=== PATIENT | female | born 2005 | race Caucasian/White ===

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

== ENCOUNTER 2023-06-14 16:28 | Emergency (ER) | payer SELFPAY ==
[2023-06-14 16:28] VITALS: BP 127/81; PULSE 116; RESP 17; TEMP 36.8; O2SAT 100; BMI 23.1
--- NOTE | 2023-06-14 16:42 | ED.VIS.FEGU ---
HPI HPI - Female History of Present Illness Chief Complaint: Vag Bld, Preg Informant: patient and parent Narrative Narrative: 10-week gestation by ultrasound presents vaginal bleeding starting yesterday evening states mild dark blood. No clots no bright red blood. Intermittent cramping pelvis. No dysuria. Denies alcohol, tobacco or illicit drug use. She did have recent sexual intercourse. She is followed by [facility]. Last seen was 2 weeks ago. Prior similar symptoms: No PFSH PFSH Medical History no medical history Home Medications clindamycin HCl 300 mg capsule (Cleocin HCl) 300 mg PO 4X/DAY 10 days #40 CAPSULES 07/17/22 [Rx Last Taken Unknown] hydrocodone-acetaminophen 5-325mg 5mg-325mg 1 tab PO Q6H PRN pain 3 days #12 tabs 07/17/22 [Rx Last Taken Unknown] Allergy/AdvReac Type Severity Reaction Status Date / Time No Known Allergies Allergy Verified 06/14/23 16:30 Social History Smoking Status: Never smoker ROS ROS ED Constitutional Constitutional ED: Denies chills, fever(s) or sweats Eyes Eyes: Denies change in vision ENT ENT ED: Denies dysphagia or sore throat Cardiovascular Cardiovascular: Denies chest pain, leg edema, palpitations or racing heartbeat Respiratory/Chest Respiratory/Chest: Denies cough, dyspnea or dyspnea on exertion Gastrointestinal Gastrointestinal: Denies abdominal pain, diarrhea, nausea or vomiting Genitourinary Genitourinary ED: Reports other Details: Vaginal bleeding ; Denies dysuria, hematuria or urinary frequency Musculoskeletal Musculoskeletal: Denies back pain, extremity pain or neck pain Integumentary Denies rash or wounds Neurologic Neurologic: Denies headache(s), paresthesias or weakness EXAM Physical Exam Const Vital Signs: 06/14/23 16:28 06/14/23 18:15 06/14/23 18:16 Temperature 98.2 F 98.2 F 98.2 F Temperature Source Temporal Temporal Pulse Rate 116 H 74 74 Respiratory Rate 17 16 16 Blood Pressure 127/81 H 104/62 104/62 Blood Pressure Mean 96 76 76 Pulse Ox 100 99 99 Oxygen Delivery Method Room Air Room Air Positive well nourished and well developed General Appearance ED: well developed and NAD HEENT Reports moist mucous membranes normocephalic and atraumatic Eyes PERRL, EOMs intact bilaterally and conjunctivae normal General Eye ED: Yes normal appearance of both eyes Neck no lymphadenopathy and supple General: Negative for tenderness Chest Wall Chest: Negative for tenderness Resp normal respiratory effort and normal air movement Effort and Inspection: symmetric chest movement; Negative for respiratory distress Cardio regular rate, regular rhythm and no murmurs Peripheral Pulses: pulses 2+ throughout GI normal to inspection, nondistended, normoactive bowel sounds and non-tender Palpation: Negative for guarding or rebound tenderness present Back/Spine no CVA tenderness and no thoracic nor lumbar tenderness Extremity normal to inspection General Extremety ED: Negative for edema or tenderness General Extremity: Negative for edema Neuro oriented x3 and no sensory deficits noted Sensorium / Orientation: awake and alert Skin no rashes or lesions noted and no wounds MDM MDM MDM Narrative Medical decision making narrative: Interventions / MDM: Differential diagnosis: Threatened miscarriage Diagnosis considered but do not suspect: N/A My EKG interpretation: N/A Imaging independently reviewed and interpreted by myself: N/A External documents reviewed: N/A Test considered but not ordered:N/A ED course: Bedside ultrasound performed, heart tones 154 intrauterine. Will check ABO Rh, baseline beta-hCG, UA. Blood type a positive. hCG 96317, urine 25 leukocytes no other bacteria. Urine culture sent. No bleeding in the department. Discussed pelvic rest. Monitor for increasing bleeding. Discussed threatened miscarriage with patient and mother. Follow-up with her OB. All questions were answered. Re-evaluation: stable Disposition discussed with patient/family/significant other: Patient and mother Case discussed with consulting clinician: N/A This note was generated with [employer] dictation software. It may contain incorrect words, spelling, and punctuation that were not noted in checking the note before signing. Lab Data Attestation: I reviewed the patient's lab results. Labs: Laboratory Results - last 24 hr 06/14/23 17:00 HCG, Quant [id number] H Urine Color Yellow Urine Clarity Cloudy Urine pH 6.5 Ur Specific Merkel 1.020 Urine Protein 15 H Urine Glucose (UA) Normal Urine Ketones 50 H Urine Occult Blood 10 H Urine Nitrite Negative Urine Bilirubin Negative Urine Urobilinogen 1 H Ur Leukocyte Esterase 25 H Urine RBC 0 SEEN Urine WBC 0-5 SEEN Ur Squamous Epith Cells 0-5 SEEN Amorphous Sediment 2+ Urine Bacteria 0 SEEN Urine Mucus 0 SEEN Blood Type A POSITIVE Discharge Plan Triage Chief Complaint: Vag Bld, Preg ED Provider: Humphrey Stern Dx/Rx/DC Orders Clinical Impression: Threatened miscarriage, First trimester Instructions: 1st Trimester, Miscarriage Threatened Prescriptions: No Action hydrocodone-acetaminophen 5-325 mg tablet 1 tab PO Q6H PRN (Reason: pain) 3 Days Qty: 12 0RF clindamycin HCl [Cleocin HCl] 300 mg capsule 300 mg PO 4X/DAY 10 Days Qty: 40 0RF Primary Care Provider: Care Physician,No Primary Referrals: Uyen Becerra CNM [Med Staff - Adv Practice Prof] - Keep Mehrdad appointment Care Physician,No Primary [Primary Care Provider] - Activity Restrictions/Additional Instructions: Blood type a, Rh+. Hormone level [id number]. Pelvic rest as discussed. Disposition Disposition: Home, Self Care Discharge Date/Time: 06/14/23 18:21
[2023-06-14 17:12] LABS: Bacteria 0 SEEN /hpf (None Seen); Mucous, Urine 0 SEEN /hpf (<or=2+); Red Blood Cells-Urine 0 SEEN /hpf (0-5)
[2023-06-14 17:15] LABS: Color, Urine Yellow (Yellow); Glucose, Dipstick Normal (Normal); Ketone-Dipstick 50 mg/dl (Negative); Leukocyte Esterase-Dipstick 25 /ul (Negative); Nitrite-Dipstick Negative (Negative); Occult Blood-Urine 10 /ul (Negative); Protein-Dipstick 15 mg/dl (Negative); Urine Bilirubin Dipstick Negative (Negative); Urine Clarity Cloudy (Clear); Urine Urobilinogen 1 mg/dl (Normal); Urine pH 6.5 (5.0 - 8.0)
[2023-06-14 17:23] LABS: Amorphous Sediment 2+; Squamous Epithelial Cells - UA 0-5 SEEN /hpf (5-10); White Blood Cells 0-5 SEEN /hpf (0-5)
[2023-06-14 17:58] LABS: hCG Titer Quant., Serum 66262 mIU/mL (1-3)
[2023-06-14 18:15] VITALS: BP 104/62; PULSE 74; RESP 16; TEMP 36.8; O2SAT 99
[2023-06-14 18:16] VITALS: BP 104/62; PULSE 74; RESP 16; TEMP 36.8; O2SAT 99
== END 2023-06-14 18:21 | disposition home or self-care (01) ==
PROVIDERS: Emergency Provider Emergency Medicine; Visit Provider Emergency Medicine
DX: O20.0 Threatened abortion (principal); Z3A.10 10 weeks gestation of pregnancy
CPT/HCPCS: 81001; 84702; 86900; 86901; 87086; 99282

== ENCOUNTER 2023-06-29 15:40 | Emergency (ER) | payer SELFPAY ==
[2023-06-29 15:43] VITALS: BP 108/95; PULSE 150; RESP 18; TEMP 36.3; O2SAT 100; BMI 20.6
--- NOTE | 2023-06-29 17:20 | EX.ED.DYSGE1 ---
HPI <Dr. Michael Hennessy DO - Last Filed: 06/29/23 22:08> History of Present Illness Chief Complaint: General Illness <BLANCHE Goff - Last Filed: 06/29/23 20:54> Narrative Narrative: Patient presenting today due to nausea, vomiting, and lower pelvic/abdominal pain. She reports that she is currently 12 weeks . She is G1, P0. She follows with Dr. Becerra and has had ultrasound to show intrauterine . She is struggled with nausea and vomiting throughout her and takes Reglan with minimal relief. She thought she noticed a small amount of blood in her vomit this evening. She denies any fevers, chills, diarrhea, and urinary symptoms. PFSH <Dr. Michael Hennessy DO - Last Filed: 06/29/23 22:08> PFSH Home Medications clindamycin HCl 300 mg capsule (Cleocin HCl) 300 mg PO 4X/DAY 10 days #40 CAPSULES 07/17/22 [Rx Last Taken Unknown] hydrocodone-acetaminophen 5-325mg 5mg-325mg 1 tab PO Q6H PRN pain 3 days #12 tabs 07/17/22 [Rx Last Taken Unknown] ondansetron 4 mg disintegrating tablet 4 mg PO Q8H PRN PRN Nausea #10 tabs 06/29/23 [Rx Last Taken Unknown] Allergy/AdvReac Type Severity Reaction Status Date / Time No Known Allergies Allergy Verified 06/29/23 15:43 Social History Smoking Status: Never smoker ROS <BLANCHE Goff - Last Filed: 06/29/23 20:54> ROS ED Constitutional Constitutional ED: Denies chills or fever(s) Respiratory/Chest Respiratory/Chest: Denies dyspnea Gastrointestinal Gastrointestinal: Reports abdominal pain, nausea and vomiting; Denies constipation or diarrhea Genitourinary Genitourinary ED: Denies dysuria, hematuria or urinary urgency Musculoskeletal Musculoskeletal: Denies arthralgias or myalgias Integumentary Denies rash Neurologic Neurologic: Denies weakness EXAM <DO Adriel Eli Last Filed: 06/29/23 22:08> Physical Exam Const Vital Signs: 06/29/23 15:43 06/29/23 17:29 06/29/23 18:00 Temperature 97.3 F L Temperature Source Temporal Pulse Rate 150 H 64 Respiratory Rate 18 18 Respiratory Effort Normal Non-Labored Respiratory Pattern Normal Blood Pressure 108/95 H 112/76 Blood Pressure Mean 99 88 Pulse Ox 100 98 Oxygen Delivery Method Room Air Room Air 06/29/23 20:00 06/29/23 21:03 Temperature 98.1 F Temperature Source Pulse Rate 80 80 Respiratory Rate 16 16 Respiratory Effort Respiratory Pattern Blood Pressure 99/67 Blood Pressure Mean 77 Pulse Ox 98 99 Oxygen Delivery Method Room Air <BLANCHE Goff - Last Filed: 06/29/23 20:54> Physical Exam Const Vital Signs: 06/29/23 15:43 06/29/23 17:29 06/29/23 18:00 Temperature 97.3 F L Temperature Source Temporal Pulse Rate 150 H 64 Respiratory Rate 18 18 Respiratory Effort Normal Non-Labored Respiratory Pattern Normal Blood Pressure 108/95 H 112/76 Blood Pressure Mean 99 88 Pulse Ox 100 98 Oxygen Delivery Method Room Air Room Air 06/29/23 20:00 06/29/23 21:03 Temperature 98.1 F Temperature Source Pulse Rate 80 80 Respiratory Rate 16 16 Respiratory Effort Respiratory Pattern Blood Pressure 99/67 Blood Pressure Mean 77 Pulse Ox 98 99 Oxygen Delivery Method Room Air Positive well nourished, well developed and no apparent distress General Appearance ED: well developed HEENT Reports normocephalic, head/scalp atraumatic and dry mucous membranes Mouth ED: Yes dry mucous membranes Mouth: dry mucous membranes Eyes PERRL and EOMs intact bilaterally Neck full ROM and supple Chest Wall inspection of chest normal Resp normal respiratory effort and clear to auscultation bilaterally Cardio regular rate and regular rhythm GI soft to palpation, non-distended and no masses GI Narrative: Minimal tenderness in the left lower quadrant/left pelvic region. No rigidity, guarding, or peritoneal signs. Back/Spine normal ROM and normal to inspection Extremity normal to inspection and full ROM Neuro oriented x3, CN's II-XII intact bilaterally, moves all extremities, no focal motor deficits and no sensory deficits noted Sensorium / Orientation: awake and alert Psych mental status grossly normal and thought process normal Skin no rashes or lesions noted and no wounds MDM <Dr. Michael Hennessy DO - Last Filed: 06/29/23 22:08> MDM MDM Narrative Medical decision making narrative: Patient presenting due to lower pelvic pain, nausea, and vomiting. Her pain started 2 days ago, she has struggled with nausea and vomiting throughout her . She is well-appearing and in no acute distress. Initially she is tachycardic but her heart rate did improve. Clinically she does appear dehydrated. She will be given IV fluids and Zofran. Labs will be obtained to rule out leukocytosis, anemia, electrode abnormality, KATHI, UTI, pancreatitis, and hepatobiliary etiology. CBC and CMP are unremarkable, she does not have any anemia. hCG quant is over 33,000. UA shows urinary ketones but negative for UTI. Given her pelvic pain, transvaginal ultrasound was obtained, this shows a single live intrauterine with a heart rate of 166 bpm. On reexamination she reports improvement of her symptoms. She is tolerating p.o. fluids. She will be given a prescription for Zofran. She follows up with her OB on Friday. Return instructions were given and patient discharged home in stable condition. ED attending note: I evaluated the patient in conjunction with the DEO. I agree with his/her statements and above findings. I have personally performed a face to face assessment of the patient and have reviewed the DEO Note. I performed a substantive portion of the visit including all aspects of the following. I personally saw the patient performed chart review, physical exam, reviewed labs, imaging (if obtained), and formulated a treatment and management plan. This note was generated with [employer] dictation software. It may contain incorrect words, spelling, and punctuation that were not noted in review of the chart prior to signing. Lab Data Labs: Laboratory Results - last 24 hr 06/29/23 06/29/23 06/29/23 17:40 19:30 20:20 WBC 7.9 RBC 4.38 Hgb 13.3 Hct 37.7 MCV 86.1 MCH 30.4 MCHC 35.3 RDW Std Deviation 38.8 RDW Coeff of Krystyna 12.3 Plt Count 204 MPV 10.0 Immature Gran % (Auto) 0.300 Neut % (Auto) 76.2 H Lymph % (Auto) 13.0 L [place] % (Auto) 10.3 H Eos % (Auto) 0.1 Baso % (Auto) 0.1 Absolute Neuts (auto) 6.0 Absolute Lymphs (auto) 1.02 Nucleated RBC % 0 Sodium 137 Potassium 3.7 Chloride 103 Carbon Dioxide 24.0 Anion Gap 10 BUN 9 Creatinine 0.54 L Estim Creat Clear Calc 144.47 Est GFR (MDRD) Af Amer 188 Est GFR (MDRD) Non-Af 155 BUN/Creatinine Ratio 16.8 Glucose 82 Calcium 9.4 Total Bilirubin 0.80 AST 7 L ALT 19 Alkaline Phosphatase 48 Total Protein 7.7 Albumin 4.1 Globulin 3.6 Albumin/Globulin Ratio 1.1 Lipase 69 HCG, Quant 42076 H Urine Color Yellow Urine Clarity Clear Urine pH 6.0 Ur Specific [place] 1.025 Urine Protein 30 H Urine Glucose (UA) Normal Urine Ketones 150 A* Urine Occult Blood Negative Urine Nitrite Negative Urine Bilirubin Negative Urine Urobilinogen 1 H Ur Leukocyte Esterase 25 H Urine RBC 0-5 SEEN Urine WBC 0-5 SEEN Ur Squamous Epith Cells 0 SEEN Urine Bacteria 0 SEEN Urine Mucus 0 SEEN Blood Type A POSITIVE Antibody Screen NEGATIVE Radiography Diagnostic Testing: Clinical Impression(s) from Imaging Studies Obstetrics Ultrasound 06/29/23 17:31 IMPRESSION: There is a single live intrauterine with a heart rate of 166 bpm. Electronically Signed: Martin Edwards MD at 19:58 EDT , <BLANCHE Goff - Last Filed: 06/29/23 20:54> [facility] Narrative Medical decision making narrative: Patient presenting due to lower pelvic pain, nausea, and vomiting. Her pain started 2 days ago, she has struggled with nausea and vomiting throughout her . She is well-appearing and in no acute distress. Initially she is tachycardic but her heart rate did improve. Clinically she does appear dehydrated. She will be given IV fluids and Zofran. Labs will be obtained to rule out leukocytosis, anemia, electrode abnormality, KATHI, UTI, pancreatitis, and hepatobiliary etiology. CBC and CMP are unremarkable, she does not have any anemia. hCG quant is over 33,000. UA shows urinary ketones but negative for UTI. Given her pelvic pain, transvaginal ultrasound was obtained, this shows a single live intrauterine with a heart rate of 166 bpm. On reexamination she reports improvement of her symptoms. She is tolerating p.o. fluids. She will be given a prescription for Zofran. She follows up with her OB on Friday. Return instructions were given and patient discharged home in stable condition. Lab Data Attestation: I reviewed the patient's lab results. Labs: Laboratory Results - last 24 hr 06/29/23 06/29/23 06/29/23 17:40 19:30 20:20 WBC 7.9 RBC 4.38 Hgb 13.3 Hct 37.7 MCV 86.1 MCH 30.4 MCHC 35.3 RDW Std Deviation 38.8 RDW Coeff of Krystyna 12.3 Plt Count 204 MPV 10.0 Immature Gran % (Auto) 0.300 Neut % (Auto) 76.2 H Lymph % (Auto) 13.0 L [place] % (Auto) 10.3 H Eos % (Auto) 0.1 Baso % (Auto) 0.1 Absolute Neuts (auto) 6.0 Absolute Lymphs (auto) 1.02 Nucleated RBC % 0 Sodium 137 Potassium 3.7 Chloride 103 Carbon Dioxide 24.0 Anion Gap 10 BUN 9 Creatinine 0.54 L Estim Creat Clear Calc 144.47 Est GFR (MDRD) Af Amer 188 Est GFR (MDRD) Non-Af 155 BUN/Creatinine Ratio 16.8 Glucose 82 Calcium 9.4 Total Bilirubin 0.80 AST 7 L ALT 19 Alkaline Phosphatase 48 Total Protein 7.7 Albumin 4.1 Globulin 3.6 Albumin/Globulin Ratio 1.1 Lipase 69 HCG, Quant 99405 H Urine Color Yellow Urine Clarity Clear Urine pH 6.0 Ur Specific [place] 1.025 Urine Protein 30 H Urine Glucose (UA) Normal Urine Ketones 150 A* Urine Occult Blood Negative Urine Nitrite Negative Urine Bilirubin Negative Urine Urobilinogen 1 H Ur Leukocyte Esterase 25 H Urine RBC 0-5 SEEN Urine WBC 0-5 SEEN Ur Squamous Epith Cells 0 SEEN Urine Bacteria 0 SEEN Urine Mucus 0 SEEN Blood Type A POSITIVE Antibody Screen NEGATIVE Radiography Diagnostic Testing: Clinical Impression(s) from Imaging Studies Obstetrics Ultrasound 06/29/23 17:31 IMPRESSION: There is a single live intrauterine with a heart rate of 166 bpm. Electronically Signed: Martin Edwards MD at 19:58 EDT , Discharge Plan Triage Chief Complaint: General Illness ED Midlevel Provider: Nya Giraldo ED Provider: Michael Hennessy Dx/Rx/DC Orders Clinical Impression: , Nausea & vomiting, Abdominal pain Instructions: ED Vomiting (Adult) Prescriptions: New ondansetron 4 mg tablet,disintegrating 4 mg PO Q8H PRN PRN (Reason: Nausea) Qty: 10 0RF No Action hydrocodone-acetaminophen 5-325 mg tablet 1 tab PO Q6H PRN (Reason: pain) 3 Days Qty: 12 0RF clindamycin HCl [Cleocin HCl] 300 mg capsule 300 mg PO 4X/DAY 10 Days Qty: 40 0RF Primary Care Provider: Care Physician,No Primary Referrals: Care Physician,No Primary [Primary Care Provider] - Activity Restrictions/Additional Instructions: Follow-up with OB and return for any worsening of your symptoms. Stay well-hydrated. Disposition Disposition: Home, Self Care Discharge Date/Time: 06/29/23 21:04
--- NOTE | 2023-06-29 17:31 | US_ITS ---
STUDY: FIRST TRIMESTER OBSTETRICAL ULTRASOUND REASON FOR EXAM: Female, 17 years old. pelvic pain-more prominent on left and general weakness TECHNIQUE: Transvaginal US was obtained to better visualized the ovaries. TECHNICAL QUALITY: Adequate. PRIOR ULTRASOUND: None. FINDINGS: There is visualization of a single gestational sac in a normal intrauterine position. The mean sac diameter (MSD) measures 39 mm, indicating an estimated gestational age (EGA) of 9 weeks, 2 days. The gestational sac shape is within normal limits. There is no demonstrated yolk sac. The placenta is posterior. There is visualization of a live embryo. The crown-rump length (CRL) measures 65 mm, indicating an estimated gestational age (EGA) of 12 weeks, 4 days. There is demonstrated cardiac activity with a heart rate of 166 bpm. The estimated gestation age (EGA) by LMP is 12 weeks, 4 days. The estimated date of delivery (DORIS) by LMP is 11.20.24. The estimated gestation age (EGA) by US is 11 weeks, 1 days. The estimated date of delivery (DORIS) by US is 11.30.24 . The uterus measures 10.8 cm. There is no demonstrated uterine fibroid. The cervix is closed. The right ovary measures 2.9 cm. There is no right ovarian cyst. There is no visualized right adnexal mass or complex lesion. The left ovary measures 3.4 cm. There is no left ovarian cyst. There is no visualized left adnexal mass or complex lesion. There is no fluid in the cul de sac. US/Transvaginal w/Preg US IMPRESSION: There is a single live intrauterine with a heart rate of 166 bpm. Electronically Signed: Martin Edwards MD at 19:58 EDT ,
[2023-06-29 17:50] LABS: Absolute Lymphocyte Count 1.02 X10^3/uL (0.83-4.51); Basophil# 0.01 X10^3/uL; Basophil% 0.1 % (0-1); Eosinophil# 0.01 X10^3/uL; Eosinophils% 0.1 % (0-5); Hematocrit 37.7 % (37-47); Hemoglobin 13.3 g/dL (12.0-15.0); Lymphocyte # 1.02 X10^3/ul (0.83-4.51); Mean Corp Hgb Conc 35.3 g/dL (32-36); Mean Corpuscular Hgb 30.4 pg (27.0-32.0); Mean Corpuscular Volume 86.1 fL (81-99); Monocyte# 0.81 X10^3/uL; Monocyte% 10.3 % (0-10); NRBC Flagged by Analyzer 0 % (0-5); Neutrophil % 76.2 % (47-70); Platelet Count 204 K/mm3 (150-450); RBC Distribution Width CV 12.3 % (11.6-14.6); RBC Distribution Width SD 38.8 fl (35.1-43.9); Red Blood Count 4.38 M/mm3 (4.2-5.4); White Blood Count 7.9 K/mm3 (4.4-11.0)
[2023-06-29 18:00] VITALS: BP 112/76; PULSE 64; RESP 18; O2SAT 98
[2023-06-29 18:06] LABS: ALB/GLOB Ratio 1.1 RATIO (0.9-2.4); AST(SGOT) 7 U/L (15-37); Alanine Aminotransfer ALT/SGPT 19 U/L (13-56); Albumin, Serum 4.1 g/dL (3.2-5.0); Alkaline Phosphatase 48 U/L (45-117); Anion Gap 10 (5-15); BUN 9 mg/dL (7-18); BUN/Creat Ratio 16.8 RATIO (10-20); Calcium,Total 9.4 mg/dL (8.5-10.1); Chloride 103 mmol/L (98-107); Creatinine, Serum 0.54 mg/dL (0.55-1.02); EST Glomerular Filtration Rate 155 mL/min (>60); Est Glom Filt Rate - Afr Amer 188 mL/min (>60); Estimated Creatinine Clearance 144.47 ml/min; Globulin 3.6 g/dL (2.2-4.2); Glucose 82 mg/dL (74-106); Lipase 69 U/L (13-75); Potassium 3.7 mmol/L (3.5-5.1); Protein, Total 7.7 g/dL (6.4-8.2); Sodium Level 137 mmol/L (136-145)
[2023-06-29] MEDS: Ondansetron 4 MG/2 ML Vial IV (19:28)
[2023-06-29] MEDS: 0.9% Normal Saline (1000mL) 1,000 ML 999 ML IV (19:28)
[2023-06-29 20:00] VITALS: PULSE 80; RESP 16; O2SAT 98
[2023-06-29 20:26] LABS: Bacteria 0 SEEN /hpf (None Seen); Mucous, Urine 0 SEEN /hpf (<or=2+); Squamous Epithelial Cells - UA 0 SEEN /hpf (5-10)
[2023-06-29 20:27] LABS: Color, Urine Yellow (Yellow); Glucose, Dipstick Normal (Normal); Leukocyte Esterase-Dipstick 25 /ul (Negative); Nitrite-Dipstick Negative (Negative); Occult Blood-Urine Negative /ul (Negative); Protein-Dipstick 30 mg/dl (Negative); Specific Gravity, Urine 1.025 (1.002-1.030); Urine Bilirubin Dipstick Negative (Negative); Urine Clarity Clear (Clear); Urine Urobilinogen 1 mg/dl (Normal)
[2023-06-29 20:34] LABS: Ketone-Dipstick 150 mg/dl (Negative)
[2023-06-29 20:35] LABS: Red Blood Cells-Urine 0-5 SEEN /hpf (0-5); White Blood Cells 0-5 SEEN /hpf (0-5)
[2023-06-29 20:46] LABS: hCG Titer Quant., Serum 33563 mIU/mL (1-3)
[2023-06-29 21:03] VITALS: BP 99/67; PULSE 80; RESP 16; TEMP 36.7; O2SAT 99
== END 2023-06-29 21:04 | disposition home or self-care (01) ==
PROVIDERS: Physician Assistant; Emergency Provider Emergency Medicine; Visit Provider Emergency Medicine
DX: O21.9 Vomiting of pregnancy, unspecified (principal); Z3A.12 12 weeks gestation of pregnancy
CPT/HCPCS: 76817; 80053; 81001; 83690; 84702; 85025; 86850; 86900; 86901; 96361; 96374; 99283; J7030; A4216; J2405

== ENCOUNTER 2023-10-03 23:32 | Outpatient (CLI) | payer SELFPAY ==
[2023-10-03 23:48] VITALS: PULSE 94; O2SAT 99
[2023-10-03 23:49] VITALS: BP 109/67; PULSE 97; RESP 16; TEMP 37.2; O2SAT 98
[2023-10-03 23:53] VITALS: BMI 25.9
[2023-10-04 00:15] LABS: Mucous, Urine 0 SEEN /hpf (<or=2+)
[2023-10-04] MEDS: Lactated Ringers 1,000 ML 999 ML IV (00:15)
[2023-10-04 00:42] LABS: Absolute Lymphocyte Count 2.22 X10^3/uL (0.83-4.51); Absolute Neutrophil Count 6.4 X10^3/uL (2.0-7.7); Basophil# 0.02 X10^3/uL; Basophil% 0.2 % (0-1); Eosinophil# 0.09 X10^3/uL; Eosinophils% 0.9 % (0-5); Hematocrit 29.5 % (37-47); Hemoglobin 9.8 g/dL (12.0-15.0); Lymphocyte # 2.22 X10^3/ul (0.83-4.51); Lymphocyte % 22.7 % (19-41); Mean Corp Hgb Conc 33.2 g/dL (32-36); Mean Corpuscular Hgb 30.3 pg (27.0-32.0); Mean Corpuscular Volume 91.3 fL (81-99); Mean Platelet Vol. 10.4 fl (6.2-12.0); Monocyte# 0.96 X10^3/uL; Monocyte% 9.8 % (0-10); NRBC Flagged by Analyzer 0 % (0-5); Neutrophil % 65.5 % (47-70); Platelet Count 241 K/mm3 (150-450); RBC Distribution Width CV 11.7 % (11.6-14.6); Red Blood Count 3.23 M/mm3 (4.2-5.4); White Blood Count 9.8 K/mm3 (4.4-11.0)
[2023-10-04 00:59] LABS: ALB/GLOB Ratio 0.8 RATIO (0.9-2.4); AST(SGOT) 6 U/L (15-37); Alanine Aminotransfer ALT/SGPT 12 U/L (13-56); Alkaline Phosphatase 55 U/L (45-117); Anion Gap 7 (5-15); BUN 5 mg/dL (7-18); BUN/Creat Ratio 10.8 RATIO (10-20); Calcium,Total 8.7 mg/dL (8.5-10.1); Chloride 107 mmol/L (98-107); Creatinine, Serum 0.46 mg/dL (0.55-1.02); EST Glomerular Filtration Rate 183 mL/min (>60); Est Glom Filt Rate - Afr Amer 221 mL/min (>60); Estimated Creatinine Clearance 186.88 ml/min; Globulin 3.7 g/dL (2.2-4.2); Glucose 87 mg/dL (74-106); Potassium 3.5 mmol/L (3.5-5.1); Protein, Total 6.7 g/dL (6.4-8.2); Sodium Level 139 mmol/L (136-145)
[2023-10-04 01:10] LABS: Color, Urine Yellow (Yellow); Glucose, Dipstick Normal (Normal); Ketone-Dipstick Negative (Negative); Leukocyte Esterase-Dipstick 25 /ul (Negative); Nitrite-Dipstick Negative (Negative); Occult Blood-Urine Negative /ul (Negative); Protein-Dipstick Negative (Negative); Specific Gravity, Urine 1.025 (1.002-1.030); Urine Bilirubin Dipstick Negative (Negative); Urine Clarity Sl. Cloudy (Clear); Urine Urobilinogen 1 mg/dl (Normal)
[2023-10-04 01:12] LABS: Bacteria 4+ /hpf (None Seen); Calcium Oxalate Crystals Ur 2+ /hpf (<or=2+); Red Blood Cells-Urine 0-5 SEEN /hpf (0-5); Squamous Epithelial Cells - UA 5-10 SEEN /hpf (5-10); White Blood Cells 5-10 SEEN /hpf (0-5)
[2023-10-04 01:14] LABS: ROM Internal Control Test YES-OK TO RESULT pt. (Internal QC); ROM Patient Test Negative (Negative); Record Kit Lot#, ROM+ K1866
[2023-10-04] MEDS: Nitrofurantoin Macrocrystals 100 MG Capsule PO (01:37)
--- NOTE | 2023-10-04 11:47 | OB.TRI.NOTE ---
HPI - General General Date of Service: 10/03/23 HPI Narrative DUGLAS AGUILAR, is a 17 F who presents with pelvic pain at 26w2d. No vaginal bleeding or leakage of fluid. Maternal Data Information DORIS Calculator Estimated Delivery Date Method Current WG Current Estimate 01/07/24 Manual 26w 3d Final DORIS: 01/07/24 PFSH PFSH Home Medications ?Medication ?Instructions ?Recorded ?Last Taken ?Type ondansetron 4 mg disintegrating 4 mg PO Q8H PRN PRN Nausea #10 tabs 06/29/23 Unknown Rx tablet Allergy/AdvReac Type Severity Reaction Status Date / Time No Known Allergies Allergy Verified 10/03/23 23:54 Social History Smoking Status: Never smoker NST FHR Rate Baby A Baseline: 145 Assessment & Plan (1) UTI (urinary tract infection): PLAN: Plan 1) Positive UA for bacteria, will give first dose of macrobid and then Rx to pharmacy. Macrobid 100mg PO BID x7 days. 2) follow up in 1-2 weeks for urine [place] 3) D/C home
== END 2023-10-04 01:45 | disposition home or self-care (01) ==
LOC: WPOUT 23:41 → WP 23:42
PROVIDERS: Referring Provider Advanced Practice Midwife; Visit Provider Advanced Practice Midwife
DX: O23.42 Unspecified infection of urinary tract in pregnancy, second trimester (principal); Z3A.26 26 weeks gestation of pregnancy
CPT/HCPCS: 96360; 36415; 59050; 80053; 81001; 84112; 85025; 99221; J7120; G0378

== ENCOUNTER 2024-01-04 23:30 | Outpatient (CLI) | payer MEDICAID, SELFPAY ==
[2024-01-04 23:47] VITALS: BMI 28.0
[2024-01-04 23:55] VITALS: PULSE 115; RESP 14; TEMP 37.3; O2SAT 98
[2024-01-04 23:56] VITALS: BP 126/78; PULSE 108
[2024-01-05 00:40] LABS: ROM Internal Control Test YES-OK TO RESULT pt. (Internal QC); ROM Patient Test Negative (Negative); Record Kit Lot#, ROM+ K1972
--- NOTE | 2024-01-05 06:45 | OB.TRI.NOTE ---
HPI - General General Date of Service: 01/05/24 HPI Narrative DUGLAS AGUILAR, is a 18 F who presents with r/o SROM Maternal Data Information DORIS Calculator Estimated Delivery Date Method Current WG Current Estimate 01/07/24 Manual 39w 5d PFSH PFSH Home Medications ?Medication ?Instructions ?Recorded ?Last Taken ?Type vit no.95-ferrous 1 tab PO DAILY 01/05/24 Unknown History fumarate 28 mg-folic acid 800 mcg tablet () Allergy/AdvReac Type Severity Reaction Status Date / Time No Known Allergies Allergy Verified 01/05/24 00:00 Social History Smoking Status: Never smoker Physical Exam Narrative VE: closed NST FHR Rate Baby A Baseline: 125 Variability:: Moderate Accelerations:: 15 x 15 Decelerations:: None NST Reactive:: Yes FHR Category:: Category I Uterine Activity:: irregular Assessment & Plan (1) False labor: (2) 39 weeks gestation of : PLAN: Plan 18 yo @ 39.5 weeks , false labor 1) ROM plus was negative for ruputure 2) NST reactive 3) dc home
== END 2024-01-05 01:02 | disposition home or self-care (01) ==
LOC: WPOUT 23:38 → WP 23:39
PROVIDERS: Referring Provider Obstetrics & Gynecology; Visit Provider Obstetrics & Gynecology
DX: O47.1 False labor at or after 37 completed weeks of gestation (principal); Z3A.39 39 weeks gestation of pregnancy
CPT/HCPCS: 59025; 59050; 84112; 99221; G0378

== ENCOUNTER 2024-01-09 04:01 | Inpatient (IN) | payer MEDICAID, SELFPAY ==
[2024-01-09] VITALS (52 sets, daily range): BP systolic 100–143; BP diastolic 52–102; PULSE 83–153; RESP 14–18; TEMP 36.6–37.7; O2SAT 85–100; BMI 28.5
[2024-01-09 04:05] LABS: ROM Internal Control Test YES-OK TO RESULT pt. (Internal QC); ROM Patient Test POSITIVE (Negative)
[2024-01-09 04:06] LABS: Record Kit Lot#, ROM+ K1972
[2024-01-09] MEDS: Lactated Ringers 1,000 ML 50 ML IV ×2 (04:08→06:47)
[2024-01-09] MEDS: fentaNYL 100 MCG/2 ML Ampul IV (04:18)
[2024-01-09 04:21] LABS: Absolute Lymphocyte Count 2.77 X10^3/uL (0.83-4.51); Basophil# 0.02 X10^3/uL; Basophil% 0.2 % (0-1); Eosinophil# 0.08 X10^3/uL; Eosinophils% 0.7 % (0-5); Hematocrit 30.5 % (37-47); Hemoglobin 9.7 g/dL (12.0-15.0); Lymphocyte # 2.77 X10^3/ul (0.83-4.51); Lymphocyte % 22.9 % (19-41); Mean Corp Hgb Conc 31.8 g/dL (32-36); Mean Corpuscular Hgb 25.7 pg (27.0-32.0); Mean Corpuscular Volume 80.7 fL (81-99); Mean Platelet Vol. 11.3 fl (6.2-12.0); Monocyte# 1.17 X10^3/uL; Monocyte% 9.7 % (0-10); NRBC Flagged by Analyzer 0 % (0-5); Neutrophil % 65.8 % (47-70); Platelet Count 296 K/mm3 (150-450); Red Blood Count 3.78 M/mm3 (4.2-5.4); White Blood Count 12.1 K/mm3 (4.4-11.0)
[2024-01-09] MEDS: Terbutaline 1 MG/ML Vial 0.25 MG SC (04:43)
[2024-01-09 05:08] LABS: Syphilis Antibodies Non-reactive
--- NOTE | 2024-01-09 06:13 | PCM.HP.OB ---
HPI - General General Date of Admission: 01/09/24 Date of Service: 01/09/24 Chief Complaint: contractions HPI Narrative DUGLAS AGUILAR, is a 18 F who presents increasing painful contractions. SROM on admission. Admit for labor Maternal Data Information DORIS Calculator Estimated Delivery Date Method Current WG Current Estimate 01/07/24 Manual 40w 2d Final DORIS: 01/07/24 Gestational age: 40+2 PFSH PFSH Medical History Anemia Home Medications ?Medication ?Instructions ?Recorded ?Last Taken ?Type vit no.95-ferrous 1 tab PO DAILY 01/05/24 01/09/24 History fumarate 28 mg-folic acid 800 mcg tablet () acetaminophen 325 mg tablet 650 mg PO Q6H 01/09/24 01/06/24 History (Aminofen) Allergy/AdvReac Type Severity Reaction Status Date / Time No Known Allergies Allergy Verified 01/09/24 01:15 Family History no significant family his Surgical History no surgical history Social History Smoking Status: Current every day smoker History Elective abortions Hx Para 0 Spontaneous abortions Hx # Term Pregnancies Ectopic pregnancies Hx # Pregnancies Multiple births # of living children NST FHR Rate Baby A Baseline: 140 Variability:: Moderate Accelerations:: 15 x 15 Decelerations:: Early, Late and Variable NST Reactive:: Yes FHR Category:: Category II Uterine Activity:: q 2 ROS Constitutional Constitutional: Denies fatigue, fever(s) or malaise Eyes Eyes: Denies change in vision ENT HEENT: Denies dizziness or headache(s) Cardiovascular Cardiovascular: Denies chest pain, dyspnea or lightheadedness Respiratory/Chest Respiratory/Chest: Denies cough or dyspnea Gastrointestinal Gastrointestinal: Denies change in bowel habits Genitourinary Genitourinary: Denies burning urination or genital lesions Integumentary Integumentary: Denies rash Neurologic Neurologic: Denies confusion, dizziness, headache(s), numbness or weakness Vital Signs Vital Signs Vital Signs: 01/09/24 01:15 01/09/24 01:15 01/09/24 01:15 Temperature 99.4 F H Temperature Source Temporal Pulse Rate Respiratory Rate 18 Blood Pressure BP Systolic BP Diastolic Pulse Ox 11/22/24 01:18 01/09/24 01:18 01/09/24 01:18 Temperature Temperature Source Pulse Rate 99 Respiratory Rate Blood Pressure 137/85 H BP Systolic 137 BP Diastolic 85 Pulse Ox 98 01/09/24 01:45 01/09/24 01:45 01/09/24 03:53 Temperature Temperature Source Pulse Rate 94 98 Respiratory Rate Blood Pressure 125/81 H BP Systolic 125 BP Diastolic 81 Pulse Ox 01/09/24 03:53 01/09/24 03:59 01/09/24 03:59 Temperature Temperature Source Pulse Rate 88 Respiratory Rate Blood Pressure BP Systolic BP Diastolic Pulse Ox 100 97 01/09/24 04:04 01/09/24 04:04 01/09/24 04:57 Temperature Temperature Source Pulse Rate 133 H Respiratory Rate Blood Pressure 143/65 H BP Systolic 143 BP Diastolic 65 Pulse Ox 85 01/09/24 04:57 01/09/24 04:57 01/09/24 04:57 Temperature Temperature Source Temporal Pulse Rate 125 H Respiratory Rate 18 Blood Pressure BP Systolic BP Diastolic Pulse Ox 01/09/24 04:57 01/09/24 04:58 01/09/24 04:58 Temperature 99.8 F H Temperature Source Pulse Rate 116 H Respiratory Rate Blood Pressure 142/67 H BP Systolic 142 BP Diastolic 67 Pulse Ox 01/09/24 04:58 01/09/24 04:58 01/09/24 05:04 Temperature Temperature Source Pulse Rate 111 H Respiratory Rate Blood Pressure 133/66 H BP Systolic 133 BP Diastolic 66 Pulse Ox 99 01/09/24 05:04 01/09/24 05:09 01/09/24 05:09 Temperature Temperature Source Pulse Rate 109 H 111 H Respiratory Rate Blood Pressure 143/80 H BP Systolic 143 BP Diastolic 80 Pulse Ox 01/09/24 06:11 01/09/24 06:11 Temperature Temperature Source Pulse Rate 123 H Respiratory Rate Blood Pressure BP Systolic BP Diastolic Pulse Ox 100 Weight Weight: 77.9 kg Body Mass Index (BMI) 28.5 Physical Exam Const alert General Appearance: cooperative HEENT normocephalic Resp normal respiratory effort GI soft to palpation GI Narrative: gravid, nontender, appropriate for gestational age Manual OB Exam: dilated 2 Extremity no calf tenderness General Extremity: edema Skin no wounds Rashes: No rashes noted Psych activity/motor behavior normal Labs Labs Labs: Blood Type A POSITIVE Antibody Screen NEGATIVE Hct 30.5 % (37-47) L Hgb 9.7 g/dL (12.0-15.0) L Obstetrics Ultrasound Syphilis Total Ab Non-reactive Assessment & Plan (1) 40 weeks gestation of : (2) Normal labor: (3) SROM (spontaneous rupture of membranes):
[2024-01-09] MEDS: fentaNYL-bupivacaine (epidural) 100 ML BAG EPIDURAL (06:47)
--- NOTE | 2024-01-09 07:26 | PN.OBGYN_ITS ---
Subjective Subjective IUPC and FSE placed without difficulty. Epidural non in place and more comfortable. 4 cm clear fluid. Recurrent variable and late decels. Now in hands and knees. Objective Data Objective Data Vital Signs: Vital Signs Temp Pulse Resp BP Pulse Ox 97.9 F 95 16 117/69 99 01/09/24 06:50 01/09/24 06:54 01/09/24 06:53 01/09/24 06:54 01/09/24 06:51 Weight: 77.9 kg Body Mass Index (BMI) 28.5 Intake & Output: Intake and Output for Last 24 Hours 01/07/24 01/08/24 01/09/24 23:59 23:59 23:59 Intake Total 957.72 / 957.72 Balance 957.72 / 957.72 Lab / Micro Data 01/09/24 04:06 Labs: Laboratory Results - last 24 hr 01/09/24 03:35: Vag Amniotic Fld Detect POSITIVE H 01/09/24 04:06: WBC 12.1 H, RBC 3.78 L, Hgb 9.7 L, Hct 30.5 L, MCV 80.7 L, MCH 25.7 L, MCHC 31.8 L, RDW Std Deviation 38.0, RDW Coeff of Krystyna 13.0, Plt Count 296, MPV 11.3, Immature Gran % (Auto) 0.700, Neut % (Auto) 65.8, Lymph % (Auto) 22.9, [place] % (Auto) 9.7, Eos % (Auto) 0.7, Baso % (Auto) 0.2, Absolute Neuts (auto) 8.0 H, Absolute Lymphs (auto) 2.77, Nucleated RBC % 0, Syphilis Total Ab Non-reactive, Blood Type A POSITIVE, Antibody Screen NEGATIVE NST FHR Rate Baby A Baseline: 135 Decelerations:: Early, Late and Variable FHR Category:: Category II Assessment & Plan (1) SROM (spontaneous rupture of membranes): (2) 40 weeks gestation of :
[2024-01-09] MEDS: LACTATED RINGERS 500 ML 999 ML IV (07:45)
[2024-01-09] MEDS: Lactated Ringers 1,000 ML 200 ML IV (08:19)
[2024-01-09] MEDS: Oxytocin 10 UNITS/ML Vial IM (11:40)
[2024-01-09] MEDS: Oxytocin 15 Units/NS 250ml 15 UNITS/250 ML IV.SOLN 83 UNITS IV (11:50)
[2024-01-09] MEDS: HYDROmorphone 0.5 MG/0.5 ML SYRINGE IV (11:57)
--- NOTE | 2024-01-09 12:22 | PN.OBGYN_ITS ---
Subjective Subjective Called to patient's bedside because patient was involuntarily bearing down with contractions. Patient 10 /100/0. Provided bedside support through pushing. FHT's moderate variability but variable decelerations noted with pushing that were slow to recover. Had patient push every other contraction. Repositioned patient to hands and knees and both sides during pushing. Patient moving infant well with effort. Dr. Rios called to come and evaluate for possible vacuum assisted delivery due to continued heart rate decelerations. See operative report. Objective Data Objective Data Vital Signs: Vital Signs Temp Pulse Resp BP Pulse Ox 99.3 F H 97 16 122/73 H 97 01/09/24 12:14 01/09/24 12:12 01/09/24 12:14 01/09/24 12:12 01/09/24 12:12 Weight: 171 lb 11.841 oz Body Mass Index (BMI) 28.5 Intake & Output: Intake and Output for Last 24 Hours 01/07/24 01/08/24 01/09/24 23:59 23:59 23:59 Intake Total 1034.39 / 1034.39 Balance 1034.39 / 1034.39 Lab / Micro Data 01/09/24 04:06 Labs: Laboratory Results - last 24 hr 01/09/24 03:35: Vag Amniotic Fld Detect POSITIVE H 01/09/24 04:06: WBC 12.1 H, RBC 3.78 L, Hgb 9.7 L, Hct 30.5 L, MCV 80.7 L, MCH 25.7 L, MCHC 31.8 L, RDW Std Deviation 38.0, RDW Coeff of Krystyna 13.0, Plt Count 296, MPV 11.3, Immature Gran % (Auto) 0.700, Neut % (Auto) 65.8, Lymph % (Auto) 22.9, [place] % (Auto) 9.7, Eos % (Auto) 0.7, Baso % (Auto) 0.2, Absolute Neuts (auto) 8.0 H, Absolute Lymphs (auto) 2.77, Nucleated RBC % 0, Syphilis Total Ab Non-reactive, Blood Type A POSITIVE, Antibody Screen NEGATIVE Assessment & Plan (1) SROM (spontaneous rupture of membranes): (2) 40 weeks gestation of : PLAN: Plan Continue pushing every other contraction as FHT tolerate Dr. Rios in route to hospital Anticipate
[2024-01-09] MEDS: Ondansetron 4 MG/2 ML Vial IV (12:34)
[2024-01-09] MEDS: Acetaminophen 500 MG Tablet 1000 MG PO (13:36)
--- NOTE | 2024-01-09 18:18 | EX.PCM.OBVAG ---
Assessment & Plan (1) SROM (spontaneous rupture of membranes): (2) Normal labor: (3) 40 weeks gestation of : (4) intolerance to labor, delivered, current hospitalization: (5) Vacuum-assisted vaginal delivery: Maternal Data Information DORIS Calculator Estimated Delivery Date Method Current WG Current Estimate 01/07/24 Manual 40w 2d Vaginal Delivery Maternal Presentation Maternal Presentation: Active Labor Vaginal Delivery Information Procedure Performed: Vacuum Assisted Vaginal Delivery Station at time of placement: +2 Number of vacuum pulls: 3 Number of vacuum pop offs: 1 Surgeon/Practitioner: Luz Rios Date of Procedure: 01/09/24 Pre-Procedure Diagnosis: 40 week gestation, active labor, intolerance to labor Post-Procedure Diagnosis: As above Type of anesthesia: Epidural Special Medications: None Estimated Blood Loss: 400 mL Fluids Replaced: N/A Findings Description of procedure: I was called to L&D from the office for delivery given a prolonged deceleration with FHT 90 bpm for 5 minutes with pushing, and variable decelerations with pushing. Once at bedside, Amrita Tee CNM was present and pushing with the patient. FHT showed recurrent decelerations with pushing but with recovery to baseline and moderate variability. Exam 10/100/+1 station and good maternal effort with pushing. We continued to push with patient until station +2. FHT then showed decelerations to 70 bpm for 2-3 minutes. Simon catheter was draining bladder. head in OA presentation with 100% effacement and +2 station. Discussed risks, benefits and alternatives of vacuum assisted vaginal delivery with patient given intolerance to labor with decelerations becoming deeper with longer recovery. Discussed option for a section as well. Patient requested to proceed with a vacuum assisted vaginal delivery after discussion of r/b/a and consent obtained. The vacuum was placed and correct placement in front of the posterior fontanelle was confirmed digitally. With the next contraction, the vacuum was inflated and a gentle downward pressure was applied with good movement of baby and a pop off. The vacuum was then reapplied and with the next contraction the vacuum was inflated, and a gentle downward pressure was applied to bring the baby's head to +3 station. When the contraction ended the vacuum was released. With the next contraction the vacuum was inflated, and with gentle pressure the baby's head was delivered to +4 station. The vacuum was removed. There was a total of 1 pop off and 3 pulls with the vacuum. At this point the patient was experiencing pain and was unable to push effectively. A small midline episiotomy was made and the Ritgen maneuver was used. The baby's head delivered. The patient was experiencing pain and unable to push still once the head was delivered, and the patient was tightening her pelvis and legs given the pain. A loose nuchal cord x 1 was reduced. There was a slight delay less than 30 seconds with delivery of the anterior shoulder. The posterior arm was felt and initially I was going to deliver the posterior arm, but upon palpation of the posterior arm the anterior shoulder rotated and delivered followed by the posterior shoulder and body of the . A virogours VFI was delivered and placed on maternal abdomen. The cord was clamped and cut immediately. Apgars 9, 9. The placenta delivered spontaneously and was noted to be normal appearing and intact. Cord gases were obtained from the placenta. Fundus was firm and bleeding hemostatic. The patient was in pain so IV Dilaudid was offered and given for pain relied. Local was injected to repair the second degree perineal laceration. The cervix and upper vaginal were normal appearing. There was a second degree perineal laceration. The perineal skin tore to the level of the anal sphincter, but the anal sphincter was noted to be completely intact. 3-0 Vicryl was used to repair the second degree laceration in usual fashion and a digital rectal exam was performed and normal with good anal sphincter tone. Fundus firm and bleeding hemostatic. Sponge counts were correct. Procedure findings: Vigorous VFI apgars 9, 9. Loose nuchal cord x 1 without compression. Normal appearing placenta Presentation: Vertex Amniotic Membrane Rupture Type: Spontaneous Amniotic Fluid Description: Clear Placental Delivery Description: Spontaneous Cord Entanglement: Around neck x 1, loose Nuchal Cord Compression: Without compression Infant A Gender: Female (1 minute): 9 (5 minute): 9 Delayed Cord Clamping: No Post Vaginal Deli Medications given after delivery: IV Pitocin and IM Pitocin Episiotomy Description: Midline Laceration: 2nd degree Complication Complications: No
[2024-01-09] MEDS: Senna/Docusate Sodium 1 Tablet PO (20:49)
[2024-01-09] MEDS: Ibuprofen 600 MG Tablet PO (20:50)
[2024-01-10] VITALS: BP 119/72; PULSE 82; RESP 16; TEMP 36.8; O2SAT 98
[2024-01-10] MEDS: Acetaminophen 500 MG Tablet 1000 MG PO ×2 (02:38→11:05)
[2024-01-10 04:00] VITALS: BP 105/65; PULSE 76; RESP 16; TEMP 36.6; O2SAT 97
[2024-01-10 08:55] VITALS: BP 109/69; PULSE 69; RESP 17; TEMP 36.5
[2024-01-10 13:29] VITALS: BP 115/74; PULSE 80; RESP 16; TEMP 36.4; O2SAT 98
--- NOTE | 2024-01-10 13:40 | CASEMGMT ---
Social Work Assessment Labor and Delivery Unit Patient Address: [address], [place] [address] Phone number: Date of Referral: 01/09/2024 Time of Referral: 19:52 Referred By: Luz Rios Date of Intervention: 01/10/2024 Time of Intervention: 13:39 Reason for Referral: Mental Health History obtained from: Medical records, mother of baby (MOB) and father of baby (FOB).? Household composition: MOB (Viridiana, age 20), FOB (Andrey Castano, age 24) and girl Jaspreet Castano, born on 01/09/2026. Patient's parent/guardian status: MOB and FOB have been together since February of 2023 and are not . ??Both are actively involved and will be providing care for baby. MOB denied any concerns with domestic violence and described a positive and supportive relationship with the FOB. Medical History: ?, 1, now 1. MOB received routine care through [facility] beginning at 8 weeks and 0 days.? Apgars: 9 and 9. Weight: 3.075 kg. Band Head Saw Operator: Dr. Fisher Educational Status: MOB and FOB denied any issues or concerns with reading or writing. MOB is a High School graduate, and FOB went through some high school but never graduated. Financial Status: MOB and FOB reported their income is sufficient to meet the needs of their family at this time. MOB is planning on being a [employer] for now and the FOB is currently employed full-time by MOB?s father at [employer]. Supplies: MOB and FOB reported they have all the supplies they need for baby at this time including but not limited to: Car seat, bassinet, pack-n-play, crib, diapers, bottles and clothing. BINTA is in the process of getting her breast pump through her insurance and should be getting it soon. Childcare/Caregiver(s):? MOB identified herself as the primary caregiver of the however the FOB will assist with caregiving responsibilities during times when he is not working. Transportation:? MOB ais a licensed car pick up driver, the FOB is not. MOB reported she has a reliable vehicle to take to and from all medical appointments. No transportation issues identified. Programs/Agencies Involved: MOB reported that [facility] [employer] [facility] is currently involved for Medicaid. MOB also is currently connected with [facility]. MOB and FOB denied any other agency involvement at this time. Children Services/Legal Issues:? Denied. Behavioral Health Issues: ??Mental Health History: ?MOB and FOB denied any mental health issues. ?Substance Use History: Denied. ?Family History: ?s paternal grandmother (PGM) was identified as a drug addict and FOB reported he hasn?t had contact with his mother for over 4 years. ?Drug Screens: None obtained at the time of this admission. ? Family/Social Stressors: ?MOB and FOB denied any current family or social stressors. Support Systems: Ample.? MOB identified her biggest supports as ?s maternal grandparents (MGP?s) and Austin?s paternal grandfather (PGF). Depression/Shaken Baby/Safe Sleeping: travelers' aid worker provided verbal and written education on PPD, Safe Sleeping and Shaken Baby. MOB and FOB verbalized an understanding. ? ASSESSMENT:? MOB and FOB provided consent to social work visit. Upon arrival, MOB was in the room alone as the FOB had just stepped out.? During the time MOB was alone, MOB reported feeling safe at home and denied any previous or current concerns of domestic violence, untreated mental health issues or drug or alcohol abuse issues with either herself or the FOB. Upon entry, a nurse was doing some testing on and MOB still provided consent for visit and the FOB came in towards the end of the assessment.? After the testing was completed with , the nurse offered to the MOB and MOB declined and expressed a preference of being placed in the crib.? Nurse verbalized to the MOB that should be ready to eat however MOB did not initiate feeding during the time the social organization professor was present. Austin began to cry at one point and the MOB did go over to and stroke ?s face and fell asleep again. MOB was verbally engaged and FOB responded when spoken to however did not initiate conversation. MOB described the delivery as stressful and painful due to the pain and getting stuck. MOB vaped throughout the duration of her . MOB reported that the FOB has a 3-4 year old son Flaquito (MOB uncertain of the spelling) whom the FOB does not see at this time.? MOB reported that the MOB for Flaquito has stopped all contact and visits with Mr. Castano however Mr. Castano is paying child support. FOB was mostly quiet during the visit and social organization professor did not observe a lot of interaction between the MOB and FOB. Safe Plan of Care for related to substance use: N/A; not needed. ? PLAN:? Baby to be discharged home when ready.? travelers' aid worker also provided written information on depression, depression resources and Help Me Grow as additional resources offered by social organization professor which MOB and FOB accepted. No other services requested or indicated. Elicia Ellis, ART CONSULTANT, VOCATIONAL INSTRUCTOR
[2024-01-10 15:50] VITALS: BP 110/76; PULSE 78; RESP 16; TEMP 36.3
--- NOTE | 2024-01-10 21:40 | PCM.DC.SUM ---
Providers Date of Admission: 01/09/24 Primary Care Physician: Manju Primary [facility] Phys Consultations 01/09/24 04:01 Consult: Anesthesia Routine Comment: Reason For Exam: Labor Reason for Consult: Labor EMERGENT Consult: No MD Notified: No Date Notified: 01/09/24 Time Notified: 04:01 Reason For Visit: LABOR/DEL VAG DEL Diagnosis Discharge Diagnosis (1) SROM (spontaneous rupture of membranes): Status: Acute (2) Normal labor: Status: Acute Code(s): O80 - Encounter for full-term uncomplicated delivery; Z37.9 - Outcome of delivery, unspecified (3) 40 weeks gestation of : Status: Acute Code(s): Z3A.40 - 40 weeks gestation of (4) intolerance to labor, delivered, current hospitalization: Status: Acute Code(s): O77.9 - Labor and delivery complicated by stress, unspecified (5) Vacuum-assisted vaginal delivery: Status: Acute Code(s): Z37.9 - Outcome of delivery, unspecified Medications at Discharge Home Medications vit no.95-ferrous fumarate 28 mg-folic acid 800 mcg tablet () 1 tab PO DAILY 01/05/24 acetaminophen 325 mg tablet (Aminofen) 650 mg PO Q6H 01/09/24 Hospital Course Operations None Procedures None Summary of Care Provided Minutes Spent on Discharge: 15 Hospital Course: Patient had vaginal delivery. Hospital course was uneventful. Physical Exam Narrative Patient seen at bedside. Denies pain. Ambulating and voiding without difficulty. Lochia decreased. Desires discharge home today. Const alert and oriented x3 General Appearance: Negative for in distress HEENT normocephalic Eyes General Eye: normal appearance of both eyes Neck General: normal visual inspection Chest Chest: symmetrical chest wall rise Resp normal respiratory effort and normal air movement Effort and Inspection: symmetric chest movement; Negative for tachypneic Auscultation: clear to auscultation bilaterally Cardio regular rate and regular rhythm Peripheral Pulses: pulses 2+ throughout GI normal to inspection, nondistended, normoactive bowel sounds Narrative: Ice to perineum OB / External & Speculum: vaginal bleeding and other Lochia decreasing Uterus Palpation: uterus fundus firm (Below U) Extremity normal to inspection, full ROM and normal capillary refill Skin no rashes or lesions noted Neuro oriented x3, CN's II-XII intact bilaterally and gait normal Psych mental status grossly normal, thought process normal and activity/motor behavior normal Weight / BMI Weight Weight: 171 lb 11.841 oz Body Mass Index (BMI) 28.5 ABG / Lab / Microbiology Data 01/09/24 04:06 D/C Instructions Discharge Diet: No restrictions Discharge Activity: Return to Normal Activity, No Restrictions, May Drive, May Shower and May Take a Tub Bath (Warm water only. No bath salts, soaps, bubbles) May resume sexual activity in: 6-8 weeks Weight Bearing Status: Weight bearing as tolerated Call your doctor if you observe: Fever of 101 or Higher, Inability to urinate, Using more than 1 pad per hour, Shortness of breath, Dizziness, Chest pain, Calf discomfort and Uncontrolled pain DC O2, CPAP, BIPAP Needs Additional Home O2 Discharge instructions: No DC home with Oxygen: No Please Follow Up With: [facility] When: 2 weeks in office or virtual Meaningful Use Info Meaningful Use Meaningful Use Diagnoses (Choose all that apply): None applicable Ischemic Stroke Statin Dosing Therapy Reference: STATIN DOSE THERAPY REFERENCE: * Patients > 75 years receive moderate or high dose statin therapy. * Patients 75 years or YOUNGER should receive HIGH intensity statin dose unless contraindicated. You will be required to document reason for non-treatment if statin daily dose does not meet guidelines. HIGH DOSE STATIN THERAPY DAILY Atorvastatin > than or = to 40 mg Rosuvastatin > than or = to 20 mg Amlodipine + Atorvastatin > than or = to 2.5/40 mg Ezetimibe + Simvastatin 10/80 mg Simvastatin 80mg Discharge Plan Admission Admit Date/Time: 01/09/24 04:01 Primary Reason for Your Visit: Labor and Delivery Attending Provider: Luz Rios Primary Care Provider: Care Physician,No Primary Instructions Patient Instructions: After a Vaginal Additional Instructions / Restrictions: follow up in the office in 2 weeks Discharge Orders/Prescriptions Prescriptions: No Action PNV cmb#95-ferrous fumarate-FA [] 28 mg iron- 800 mcg tablet 1 tab PO DAILY acetaminophen [Aminofen] 325 mg tablet 650 mg PO Q6H Referrals / Follow Up: Care Physician,No Primary [Primary Care Provider] - Disposition Disposition (needs filled in before D/C Order can be placed): Home, Self Care
== END 2024-01-10 16:45 | disposition home or self-care (01) | DRG 560 ==
LOC: WPOUT 04:06 → WP 04:06
PROVIDERS: Obstetrics & Gynecology; Admitting Provider Obstetrics & Gynecology; Referring Provider Obstetrics & Gynecology; Visit Provider Obstetrics & Gynecology
DX: O42.02 Full-term premature rupture of membranes, onset of labor within 24 hours of rupture (principal); Z37.0 Single live birth; F17.200 Nicotine dependence, unspecified, uncomplicated; O76 Abnormality in fetal heart rate and rhythm complicating labor and delivery; O70.1 Second degree perineal laceration during delivery; Z3A.40 40 weeks gestation of pregnancy; O99.334 Smoking (tobacco) complicating childbirth; O69.81X0 Labor and delivery complicated by cord around neck, without compression, not applicable or unspecified
CPT/HCPCS: 59025; 59050; 84112; 85025; 86780; 86850; 86900; 86901; 99221; J7120; G0378; J2405

== ENCOUNTER 2024-02-29 20:21 | Emergency (ER) | payer MEDICAID, SELFPAY ==
[2024-02-29 20:21] VITALS: BP 90/62; PULSE 145; RESP 18; TEMP 36.6; O2SAT 99; BMI 24.3
[2024-02-29] MEDS: 0.9% Normal Saline (1000mL) 1,000 ML 999 ML IV (20:38)
[2024-02-29] MEDS: Ondansetron 4 MG/2 ML Vial IV (20:38)
[2024-02-29 20:48] LABS: Absolute Lymphocyte Count 0.97 X10^3/uL (0.83-4.51); Absolute Neutrophil Count 13.7 X10^3/uL (2.0-7.7); Basophil# 0.03 X10^3/uL; Basophil% 0.2 % (0-1); Eosinophil# 0.07 X10^3/uL; Eosinophils% 0.5 % (0-5); Hematocrit 41.9 % (37-47); Lymphocyte # 0.97 X10^3/ul (0.83-4.51); Lymphocyte % 6.3 % (19-41); Mean Corpuscular Hgb 24.7 pg (27.0-32.0); Mean Corpuscular Volume 79.5 fL (81-99); Mean Platelet Vol. 9.7 fl (6.2-12.0); Monocyte# 0.57 X10^3/uL; Monocyte% 3.7 % (0-10); NRBC Flagged by Analyzer 0 % (0-5); Neutrophil # 13.74 X10^3/uL (2.7-7.7); Neutrophil % 88.9 % (47-70); Platelet Count 304 K/mm3 (150-450); RBC Distribution Width CV 15.3 % (11.6-14.6); Red Blood Count 5.27 M/mm3 (4.2-5.4); White Blood Count 15.4 K/mm3 (4.4-11.0)
--- NOTE | 2024-02-29 20:49 | EX.ED.DYSGE1 ---
HPI <BLANCHE Scott - Last Filed: 02/29/24 21:45> History of Present Illness Chief Complaint: Nausea/Vomiting/Diarrhea Narrative Narrative: 18-year-old female states she was eating pizza rolls around noon and started to feel off and then shortly developed generalized abdominal pain and vomiting and diarrhea. She has not been able to keep down fluids. She denies blood in her vomit or stool. No fever chills chest pain or shortness of breath. She has no abdominal surgical history. She does not smoke or drink alcohol. She is 2 months and is breast-feeding. She started her first menses a few days ago. PFSH <BLANCHE Scott Last Filed: 02/29/24 21:45> PFSH Medical History Anemia Home Medications ?Medication ?Instructions ?Recorded ?Last Taken ?Type vit no.95-ferrous 1 tab PO DAILY 01/05/24 01/09/24 History fumarate 28 mg-folic acid 800 mcg tablet () cephalexin 500 mg capsule 500 mg PO Q6 #12 CAPSULES 02/29/24 Unknown Rx ondansetron 4 mg disintegrating 4 mg PO Q8H PRN PRN Nausea #12 tabs 02/29/24 Unknown Rx tablet Allergy/AdvReac Type Severity Reaction Status Date / Time No Known Allergies Allergy Verified 02/29/24 20:24 Family History no significant family his Surgical History no surgical history Social History Smoking Status: Former smoker ROS <BLANCHE Scott - Last Filed: 02/29/24 21:45> ROS ED ROS Narrative Constitutional: Negative for fever, chills, malaise. CVS: Negative for chest pain. Respiratory: Negative for shortness of breath, cough. GI: Positive for abdominal pain, nausea, vomiting, diarrhea. : Negative for dysuria. EXAM <BLANCHE Scott - Last Filed: 02/29/24 21:45> Physical Exam Narrative Exam Narrative: CONST: Patient vomiting into emesis bag standing at bedside. EYES: Normal inspection. ENT: Normal inspection, moist mucous membranes. NECK: Normal inspection. RESP: No respiratory distress, CTAB. CVS: Regular rate and rhythm, no murmur, no gallop. ABD: Soft and nontender, no guarding or rebound, nondistended. SKIN: Color normal, no rash, warm, dry, intact. EXTREMITIES: Normal appearance, no pedal edema. NEURO: Alert and answering questions appropriately. PSYCH: Normal affect. Const Vital Signs: 02/29/24 20:21 02/29/24 21:26 02/29/24 21:35 Temperature 97.9 F 97.9 F Temperature Source Oral Oral Pulse Rate 145 H 93 93 Respiratory Rate 18 18 18 Blood Pressure 90/62 107/57 L 107/57 L Blood Pressure Mean 71 73 73 Pulse Ox 99 100 100 Oxygen Delivery Method Room Air Room Air Room Air 02/29/24 23:11 Temperature 98.3 F Temperature Source Oral Pulse Rate 94 Respiratory Rate 16 Blood Pressure 110/60 Blood Pressure Mean 76 Pulse Ox 98 Oxygen Delivery Method Room Air <Dr. Hola Abarca DO - Last Filed: 02/29/24 23:30> Physical Exam Const Vital Signs: 02/29/24 20:21 02/29/24 21:26 02/29/24 21:35 Temperature 97.9 F 97.9 F Temperature Source Oral Oral Pulse Rate 145 H 93 93 Respiratory Rate 18 18 18 Blood Pressure 90/62 107/57 L 107/57 L Blood Pressure Mean 71 73 73 Pulse Ox 99 100 100 Oxygen Delivery Method Room Air Room Air Room Air 02/29/24 23:11 Temperature 98.3 F Temperature Source Oral Pulse Rate 94 Respiratory Rate 16 Blood Pressure 110/60 Blood Pressure Mean 76 Pulse Ox 98 Oxygen Delivery Method Room Air [facility] <BLANCHE Scott - Last Filed: 02/29/24 21:45> [facility] Narrative Medical decision making narrative: Patient has acute N/V/D that started this afternoon after she felt like she ate some bad pizza rolls. Initially she was dry heaving and vomiting quite profusely at the side of the bed. She was hypotensive and tachycardic but does not look ill. After nursing staff got her in the bed place an IV and started fluids and Zofran she is feeling a little more comfortable. Her repeat vital signs are better. She has moist mucous membranes. Normal cardiopulmonary exam. Abdomen is completely soft and nontender. Labs show WBC of 15.4. CMP and lipase are unremarkable. Glucose 110. Normal CO2 and anion gap. test is negative. I suspect her leukocytosis is reactive rather than indicative of an intra-abdominal infection as she has no tenderness. Lab Data Attestation: I reviewed the patient's lab results. Labs: Laboratory Results - last 24 hr 02/29/24 02/29/24 20:38 22:29 WBC 15.4 H RBC 5.27 Hgb 13.0 Hct 41.9 MCV 79.5 L MCH 24.7 L MCHC 31.0 L RDW Std Deviation 44.0 H RDW Coeff of Krystyna 15.3 H Plt Count 304 MPV 9.7 Immature Gran % (Auto) 0.400 Neut % (Auto) 88.9 H Lymph % (Auto) 6.3 L Bowie % (Auto) 3.7 Eos % (Auto) 0.5 Baso % (Auto) 0.2 Absolute Neuts (auto) 13.7 H Absolute Lymphs (auto) 0.97 Nucleated RBC % 0 Sodium 139 Potassium 4.0 Chloride 107 Carbon Dioxide 23.0 Anion Gap 9 BUN 18 Creatinine 0.99 Estim Creat Clear Calc 81.57 Est GFR (MDRD) Af Amer 92 Est GFR (MDRD) Non-Af 76 BUN/Creatinine Ratio 18.2 Glucose 110 H Calcium 9.6 Total Bilirubin 0.70 AST 11 L ALT 28 Alkaline Phosphatase 116 Total Protein 9.1 H Albumin 4.8 Globulin 4.3 H Albumin/Globulin Ratio 1.1 Lipase 35 Serum , Qual NEGATIVE Urine Color Yellow Urine Clarity Sl. Cloudy Urine pH 5.0 Ur Specific [place] 1.025 Urine Protein 30 H Urine Glucose (UA) Normal Urine Ketones 5 H Urine Occult Blood 150 H Urine Nitrite Negative Urine Bilirubin Negative Urine Urobilinogen Normal Ur Leukocyte Esterase 25 H Urine RBC 0 SEEN Urine WBC 10-25 SEEN Ur Squamous Epith Cells 5-10 SEEN Urine Bacteria 2+ Urine Mucus 0 SEEN <Dr. Hola Abarca, DO - Last Filed: 02/29/24 23:30> [facility] Lab Data Labs: Laboratory Results - last 24 hr 02/29/24 02/29/24 20:38 22:29 WBC 15.4 H RBC 5.27 Hgb 13.0 Hct 41.9 MCV 79.5 L MCH 24.7 L MCHC 31.0 L RDW Std Deviation 44.0 H RDW Coeff of Krystyna 15.3 H Plt Count 304 MPV 9.7 Immature Gran % (Auto) 0.400 Neut % (Auto) 88.9 H Lymph % (Auto) 6.3 L Bowie % (Auto) 3.7 Eos % (Auto) 0.5 Baso % (Auto) 0.2 Absolute Neuts (auto) 13.7 H Absolute Lymphs (auto) 0.97 Nucleated RBC % 0 Sodium 139 Potassium 4.0 Chloride 107 Carbon Dioxide 23.0 Anion Gap 9 BUN 18 Creatinine 0.99 Estim Creat Clear Calc 81.57 Est GFR (MDRD) Af Amer 92 Est GFR (MDRD) Non-Af 76 BUN/Creatinine Ratio 18.2 Glucose 110 H Calcium 9.6 Total Bilirubin 0.70 AST 11 L ALT 28 Alkaline Phosphatase 116 Total Protein 9.1 H Albumin 4.8 Globulin 4.3 H Albumin/Globulin Ratio 1.1 Lipase 35 Serum , Qual NEGATIVE Urine Color Yellow Urine Clarity Sl. Cloudy Urine pH 5.0 Ur Specific [place] 1.025 Urine Protein 30 H Urine Glucose (UA) Normal Urine Ketones 5 H Urine Occult Blood 150 H Urine Nitrite Negative Urine Bilirubin Negative Urine Urobilinogen Normal Ur Leukocyte Esterase 25 H Urine RBC 0 SEEN Urine WBC 10-25 SEEN Ur Squamous Epith Cells 5-10 SEEN Urine Bacteria 2+ Urine Mucus 0 SEEN Treatment and Re-Evaluation :: I have personally performed a face to face assessment of the patient and have reviewed the DEO Note. I performed a substantive portion of the visit including all aspects of the following. My gallardo findings include: History: Patient presents with nausea, vomiting, diarrhea, and abdominal pain that began today. Patient states it began rather suddenly. Patient describes it as stabbing. Patient states it is diffuse with across her entire abdomen. Patient states it is worse anytime she swallows anything. Patient denies any hematemesis or coffee-ground emesis. Patient denies any melena or hematochezia. Patient states she is currently on her menstrual cycle. Patient denies any urinary complaints. Patient denies any fevers or chills. Exam: Vital signs are stable except for initial tachycardia of 145. Patient is afebrile. Patient is in no acute distress. Oral mucosa is pink and moist. Neck is supple. Trachea is midline. There is no JVD. Heart was regular rate and rhythm. Lungs are clear and equal bilaterally. Abdomen is soft. Bowel sounds are normal. There is diffuse tenderness. There is no rebound or guarding noted. Cranial nerves II through XII are intact. There are no focal motor or sensory deficits noted. Medical Decision Making: Differential diagnosis includes dehydration, viral illness, urinary tract infection, pancreatitis, ectopic , and electrolyte abnormality. CBC will be obtained to assess for leukocytosis and anemia. Comprehensive metabolic profile will be obtained to assess for hepatic function, renal function, and electrolyte abnormality. Lipase will be obtained to assess for pancreatitis. Serum hCG will be obtained to assess for . Urinalysis will be obtained to assess for urinary tract infection and hematuria. Patient was given IV fluids and Zofran. Patient was ordered Bentyl but refused. CBC was reviewed. There is a mild leukocytosis of 15.4. Comprehensive metabolic profile was reviewed and was essentially within normal limits. Lipase was reviewed and was normal. Serum hCG was reviewed and was negative. Urinalysis was reviewed. Leukocyte esterase was 25. There are 10-25 white blood cells and 2+ bacteria. Patient's blood pressure and heart rate improved after IV fluids. Patient was advised of her findings. Patient was given a dose of Keflex here. Patient was given a prescription for Keflex. Patient was instructed to follow-up with her primary care physician in 5 to 7 days. Patient understood and was agreeable with the plan. All questions were answered. Discharge Plan Triage Chief Complaint: Nausea/Vomiting/Diarrhea ED Midlevel Provider: Qiana Bunn ED Provider: Hola Abarca Dx/Rx/DC Orders Clinical Impression: Nausea and vomiting, Acute diarrhea, Abdominal pain, UTI (urinary tract infection) Instructions: Abdominal Pain, ED Diet Vomiting Diarrhea, ED Cystitis Female Adult Prescriptions: New ondansetron 4 mg tablet,disintegrating 4 mg PO Q8H PRN PRN (Reason: Nausea) Qty: 12 0RF cephalexin 500 mg capsule 500 mg PO Q6 Qty: 12 0RF No Action PNV cmb#95-ferrous fumarate-FA [] 28 mg iron- 800 mcg tablet 1 tab PO DAILY Primary Care Provider: Care Physician,No Primary Referrals: Macario Bird DO [Med Staff - Lace Inspector] - 5-7 Days Care Physician,No Primary [Primary Care Provider] - Print Language: South African Disposition Disposition: Home, Self Care
[2024-02-29 21:01] LABS: Internal QC Validated? YES +Cl - CLEAR BKGD; Pregnancy, Serum, hCG Quali. NEGATIVE Negative
[2024-02-29 21:08] LABS: ALB/GLOB Ratio 1.1 RATIO (0.9-2.4); AST(SGOT) 11 U/L (15-37); Alanine Aminotransfer ALT/SGPT 28 U/L (13-56); Albumin, Serum 4.8 g/dL (3.2-5.0); Alkaline Phosphatase 116 U/L (45-117); Anion Gap 9 (5-15); BUN 18 mg/dL (7-18); BUN/Creat Ratio 18.2 RATIO (10-20); Calcium,Total 9.6 mg/dL (8.5-10.1); Chloride 107 mmol/L (98-107); Creatinine, Serum 0.99 mg/dL (0.55-1.02); EST Glomerular Filtration Rate 76 mL/min (>60); Est Glom Filt Rate - Afr Amer 92 mL/min (>60); Estimated Creatinine Clearance 81.57 ml/min; Globulin 4.3 g/dL (2.2-4.2); Glucose 110 mg/dL (74-106); Lipase 35 U/L (13-75); Protein, Total 9.1 g/dL (6.4-8.2); Sodium Level 139 mmol/L (136-145)
[2024-02-29 21:26] VITALS: BP 107/57; PULSE 93; RESP 18; O2SAT 100
[2024-02-29 21:35] VITALS: BP 107/57; PULSE 93; RESP 18; TEMP 36.6; O2SAT 100
[2024-02-29 22:35] LABS: Mucous, Urine 0 SEEN /hpf (<or=2+); Red Blood Cells-Urine 0 SEEN /hpf (0-5)
[2024-02-29 22:37] LABS: Color, Urine Yellow (Yellow); Glucose, Dipstick Normal (Normal); Ketone-Dipstick 5 mg/dl (Negative); Leukocyte Esterase-Dipstick 25 /ul (Negative); Nitrite-Dipstick Negative (Negative); Occult Blood-Urine 150 /ul (Negative); Protein-Dipstick 30 mg/dl (Negative); Specific Gravity, Urine 1.025 (1.002-1.030); Urine Bilirubin Dipstick Negative (Negative); Urine Clarity Sl. Cloudy (Clear); Urine Urobilinogen Normal (Normal)
[2024-02-29 23:11] VITALS: BP 110/60; PULSE 94; RESP 16; TEMP 36.8; O2SAT 98
[2024-02-29 23:15] LABS: Bacteria 2+ /hpf (None Seen); Squamous Epithelial Cells - UA 5-10 SEEN /hpf (5-10); White Blood Cells 10-25 SEEN /hpf (0-5)
[2024-02-29] MEDS: Cephalexin 500 MG Capsule PO (23:39)
[2024-02-29 23:44] VITALS: BP 110/67; PULSE 72; RESP 18; TEMP 36.8; O2SAT 98
== END 2024-02-29 23:45 | disposition home or self-care (01) ==
PROVIDERS: Physician Assistant; Emergency Provider Emergency Medicine; Visit Provider Emergency Medicine
DX: N39.0 Urinary tract infection, site not specified (principal); R11.2 Nausea with vomiting, unspecified; R19.7 Diarrhea, unspecified; R10.84 Generalized abdominal pain; Z87.891 Personal history of nicotine dependence
CPT/HCPCS: 80053; 81001; 83690; 84703; 85025; 96361; 96374; 99283; A4216; J2405

== ENCOUNTER 2024-07-28 14:51 | Emergency (ER) | payer MEDICAID, SELFPAY ==
[2024-07-28 14:51] VITALS: BP 118/75; PULSE 82; RESP 14; TEMP 36.2; O2SAT 99; BMI 28.3
[2024-07-28 15:30] LABS: Absolute Lymphocyte Count 1.82 X10^3/uL (0.83-4.51); Basophil# 0.03 X10^3/uL; Basophil% 0.4 % (0-1); Eosinophils% 1.3 % (0-5); Hematocrit 35.3 % (37-47); Hemoglobin 11.3 g/dL (12.0-15.0); Lymphocyte # 1.82 X10^3/ul (0.83-4.51); Lymphocyte % 23.7 % (19-41); Mean Corpuscular Hgb 25.7 pg (27.0-32.0); Mean Corpuscular Volume 80.4 fL (81-99); Mean Platelet Vol. 10.2 fl (6.2-12.0); Monocyte# 0.68 X10^3/uL; Monocyte% 8.8 % (0-10); NRBC Flagged by Analyzer 0 % (0-5); Neutrophil # 5.04 X10^3/uL (2.7-7.7); Neutrophil % 65.5 % (47-70); Platelet Count 237 K/mm3 (150-450); RBC Distribution Width CV 13.5 % (11.6-14.6); RBC Distribution Width SD 39.4 fl (35.1-43.9); Red Blood Count 4.39 M/mm3 (4.2-5.4); White Blood Count 7.7 K/mm3 (4.4-11.0)
[2024-07-28 15:41] LABS: Internal QC Validated? YES +Cl - CLEAR BKGD; Pregnancy, Serum, hCG Quali. NEGATIVE Negative; Record Kit Lot#, Serum Preg. 947241
[2024-07-28 15:45] LABS: Lipase 23 U/L (13-75)
[2024-07-28 15:46] LABS: ALB/GLOB Ratio 1.4 RATIO (0.9-2.4); AST(SGOT) 11 U/L (<=31); Alanine Aminotransfer ALT/SGPT 10 U/L (<=34); Albumin, Serum 4.4 g/dL (3.5-5.0); Alkaline Phosphatase 99 U/L (35-104); Anion Gap 10 (5-15); BUN 9 mg/dL (4-19); BUN/Creat Ratio 12.3 RATIO (10-20); Chloride 102 mmol/L (98-108); Creatinine, Serum 0.76 mg/dL (0.70-1.20); EST Glomerular Filtration Rate 115 (>60); Estimated Creatinine Clearance 121.41 ml/min (50-250); Globulin 3.1 g/dL (2.2-4.2); Glucose 106 mg/dL (70-99); Potassium 4.2 mmol/L (3.3-5.1); Protein, Total 7.5 g/dL (5.9-8.4); Sodium Level 137 mmol/L (133-145); Total Bilirubin 0.26 mg/dL (0.00-1.30)
--- NOTE | 2024-07-28 16:33 | US_ITS ---
PROCEDURE: TRANSVAGINAL NON- 07/28/2024 REASON FOR EXAM: PELVIC PAIN TECHNIQUE: Transvaginal pelvic ultrasound COMPARISON: None. FINDINGS: The uterus measures 7.05.9 x 4.0 cm. Anteverted uterus. No fibroids. Endometrial thickness measures 4 mm. Nabothian cysts are present. An intrauterine device is present and in satisfactory position. Right ovary measures 2.4 x 2.3 x 1.6 cm with preserved vascular flow. Left ovary measures 3.4 x 2.2 x 1.9 cm with preserved vascular flow. No adnexal masses. Mild free fluid in the cul-de-sac. US/Transvaginal Non- IMPRESSION: Mild free fluid in the cul-de-sac. Intrauterine device in place. Reading Location: [place] [id number]
--- NOTE | 2024-07-28 16:34 | ED.VIS.GI ---
HPI HPI - GI History of Present Illness Chief Complaint: Abd Pain Informant: patient Abdominal Pain/Flank Pain Onset: Days (2) Context: Sudden Onset Timing: Waxes and wanes Quality: Stabbing Location: LLQ and - (Suprapubic) Worsened by: - (Relaxing) Relieved by: Nothing Nausea/Vomiting/Emesis GI Symptom: Negative for Nausea or Vomiting Diarrhea/Melena/Hematochezia GI Symptom: Negative for Diarrhea, Melena or Hematochezia Associated Symptoms Associated Symptoms: Positive for Dysuria and Hematuria; Negative for Frequency or Urgency LMP: Current Narrative Narrative: Patient presents with lower abdominal pain that has been getting worse over the past 2 to 3 days. Patient states it began rather suddenly. Patient states it has been constant but waxes and wanes. Patient describes it as stabbing. Patient states it is mainly over the suprapubic and left lower quadrant. Patient states it is worse when she relaxes her abdomen muscles. Patient states nothing makes it better. Patient denies any nausea or vomiting. Patient denies any diarrhea, melena, hematochezia. Patient admits to some pain with urination. Patient states she went to [facility] urgent care for possible urinary tract infection. Patient states they did a urinalysis which showed some hematuria but did not show any urinary tract infection. Patient states she was then referred to the emergency department because she has an IUD in place. [facility] Medical History (Updated 07/28/24 @ 19:[address] Hola Abarca, DO) depression Vacuum-assisted vaginal delivery Anemia Home Medications ?Medication ?Instructions ?Recorded ?Last Taken ?Type vit no.95-ferrous 1 tab PO DAILY 01/05/24 01/09/24 History fumarate 28 mg-folic acid 800 mcg tablet () naproxen 500 mg tablet 500 mg PO BID PRN #20 tabs 07/28/24 Unknown Rx sertraline 25 mg tablet 25 mg PO DAILY 07/28/24 Unknown History Allergy/AdvReac Type Severity Reaction Status Date / Time No Known Allergies Allergy Verified 07/28/24 14:55 Family History no significant family his Surgical History no surgical history no surgical history Social History Smoking Status: Former smoker ROS ROS ED Constitutional Constitutional ED: Denies chills or fever(s) Eyes Eyes: Denies blurry vision or change in vision ENT ENT ED: Denies rhinorrhea or sore throat Cardiovascular Cardiovascular: Denies chest pain or palpitations Respiratory/Chest Respiratory/Chest: Denies cough or dyspnea Gastrointestinal Gastrointestinal: Reports abdominal pain; Denies nausea or vomiting Genitourinary Genitourinary ED: Reports dysuria and hematuria Musculoskeletal Musculoskeletal: Denies back pain or neck pain Integumentary Denies abscess or rash Neurologic Neurologic: Reports headache(s); Denies weakness Allergic/Immunologic Allergic/Immunologic ED: Denies mouth swelling or urticaria EXAM Physical Exam Const Vital Signs: 07/28/24 14:51 07/28/24 17:40 Temperature 97.2 F L Temperature Source Oral Pulse Rate 82 78 Respiratory Rate 14 18 Blood Pressure 118/75 126/73 H Blood Pressure Mean 89 90 Pulse Ox 99 100 Oxygen Delivery Method Room Air Room Air Positive well nourished and well developed General Appearance ED: well developed and NAD HEENT Reports moist mucous membranes Neck supple and no JVD Resp normal respiratory effort and clear to auscultation bilaterally Cardio regular rate and regular rhythm GI non-distended Palpation: soft and tender LLQ and suprapubic; Negative for guarding or rebound tenderness present Neuro CN's II-XII intact bilaterally, moves all extremities and no sensory deficits noted Sensorium / Orientation: alert Motor Exam: strength 5/5 throughout Psych mental status grossly normal MDM MDM MDM Narrative Medical decision making narrative: Differential diagnosis includes , ectopic , ovarian cyst, urinary tract infection, and displaced IUD. CBC will be obtained to assess for leukocytosis and anemia. Comprehensive metabolic profile will be obtained to assess for hepatic function, renal function, and electrolyte abnormality. Lipase will be obtained to assess for pancreatitis. Urinalysis will be obtained to assess for urinary tract infection and hematuria. Serum hCG will be obtained to assess for . Pelvic ultrasound will be obtained to assess for IUD placement. Lab Data Attestation: I reviewed the patient's lab results. Lab results narrative: CBC was reviewed. There is a mild anemia with a hemoglobin of 11.3 and hematocrit 35.3. The remainder is within normal limits. Comprehensive metabolic profile was reviewed and was within normal limits. Serum lipase was reviewed and was normal at 23. Serum hCG was reviewed and was negative. Urinalysis was reviewed. Occult blood was 250 with greater than 100 red blood cells. There is no evidence of urinary tract infection. Labs: Laboratory Results - last 24 hr 07/28/24 07/28/24 15:06 15:22 WBC 7.7 RBC 4.39 Hgb 11.3 L Hct 35.3 L MCV 80.4 L MCH 25.7 L MCHC 32.0 RDW Std Deviation 39.4 RDW Coeff of Krystyna 13.5 Plt Count 237 MPV 10.2 Immature Gran % (Auto) 0.300 Neut % (Auto) 65.5 Lymph % (Auto) 23.7 Lyman % (Auto) 8.8 Eos % (Auto) 1.3 Baso % (Auto) 0.4 Absolute Neuts (auto) 5.0 Absolute Lymphs (auto) 1.82 Nucleated RBC % 0 Sodium 137 Potassium 4.2 Chloride 102 Carbon Dioxide 24.0 Anion Gap 10 BUN 9 Creatinine 0.76 Estim Creat Clear Calc 121.41 Est GFR (MDRD) Non-Af 115 BUN/Creatinine Ratio 12.3 Glucose 106 H Calcium 9.0 Total Bilirubin 0.26 AST 11 ALT 10 Alkaline Phosphatase 99 Total Protein 7.5 Albumin 4.4 Globulin 3.1 Albumin/Globulin Ratio 1.4 Lipase 23 Serum , Qual NEGATIVE Urine Color [place] Urine Clarity Sl. Cloudy Urine pH 6.0 Ur Specific [place] 1.010 Urine Protein 30 H Urine Glucose (UA) Normal Urine Ketones Negative Urine Occult Blood 250 H Urine Nitrite Negative Urine Bilirubin Negative Urine Urobilinogen Normal Ur Leukocyte Esterase Negative Urine RBC > 100 SEEN Urine WBC 0-5 SEEN Ur Squamous Epith Cells 0-5 SEEN Urine Bacteria 0 SEEN Urine Mucus 0 SEEN Radiography Diagnostic Testing: Clinical Impression(s) from Imaging Studies Transvaginal US 07/28/24 16:33 IMPRESSION: Mild free fluid in the cul-de-sac. Intrauterine device in place. Reading Location: [place] [id number] Pelvic ultrasound was obtained. There is mild free fluid in the cul-de-sac. There is an IUD in place. There is no acute abnormality noted. This was interpreted by the radiologist and was also independently reviewed by myself. Treatment and Re-Evaluation :: Patient was given IV fluids. Patient patient was feeling better on reevaluation. Patient was advised of her findings. Patient was given a prescription for Naprosyn for pain. Patient was instructed to follow-up with her EXPERIMENTAL ASSEMBLER as scheduled. Patient understood and was agreeable with this plan. All questions were answered. Discharge Plan Triage Chief Complaint: Abd Pain ED Provider: Hola Abarca Dx/Rx/DC Orders Clinical Impression: Pelvic pain, Nicotine vapor product user Instructions: ED Pelvic Pain, Unknown Cause Prescriptions: New naproxen 500 mg tablet 500 mg PO BID PRN Qty: 20 0RF No Action PNV cmb#95-ferrous fumarate-FA [] 28 mg iron- 800 mcg tablet 1 tab PO DAILY sertraline 25 mg tablet 25 mg PO DAILY Primary Care Provider: Care Physician,No Primary Referrals: Care Physician,No Primary [Primary Care Provider] - Keep Mehrdad appointment Print Language: Panamanian Disposition Disposition: Home, Self Care
[2024-07-28 16:44] LABS: Bacteria 0 SEEN /hpf (None Seen); Mucous, Urine 0 SEEN /hpf (<or=2+)
[2024-07-28] MEDS: 0.9% Normal Saline (1000mL) 1,000 ML 1000 ML IV (16:52)
[2024-07-28 16:59] LABS: Color, Urine Amber (Yellow); Glucose, Dipstick Normal (Normal); Ketone-Dipstick Negative (Negative); Leukocyte Esterase-Dipstick Negative /ul (Negative); Nitrite-Dipstick Negative (Negative); Occult Blood-Urine 250 /ul (Negative); Protein-Dipstick 30 mg/dl (Negative); Urine Bilirubin Dipstick Negative (Negative); Urine Clarity Sl. Cloudy (Clear); Urine Urobilinogen Normal (Normal)
[2024-07-28 17:40] VITALS: BP 126/73; PULSE 78; RESP 18; O2SAT 100
[2024-07-28 18:16] LABS: Red Blood Cells-Urine > 100 SEEN /hpf (0-5); Squamous Epithelial Cells - UA 0-5 SEEN /hpf (5-10); White Blood Cells 0-5 SEEN /hpf (0-5)
[2024-07-28 19:30] VITALS: BP 136/79; PULSE 74; RESP 17; TEMP 36.1; O2SAT 100
== END 2024-07-28 19:39 | disposition home or self-care (01) ==
PROVIDERS: Emergency Provider Emergency Medicine; Visit Provider Emergency Medicine
DX: R10.2 Pelvic and perineal pain (principal); R31.9 Hematuria, unspecified; R30.0 Dysuria; F17.290 Nicotine dependence, other tobacco product, uncomplicated
CPT/HCPCS: 76830; 80053; 81001; 83690; 84703; 85025; 93976; 96360; 99283; A4216